=== PATIENT | male | born 1980 | race Caucasian/White ===

== ENCOUNTER → 2020-07-01 10:17 | Outpatient (BNVA) | payer SELFPAY | PROVIDERS: PCP Nurse Practitioner Family; Referring Provider Nurse Practitioner Family; Visit Provider Podiatrist Foot & Ankle Surgery | DX: M79.672 Pain in left foot (principal) | CPT/HCPCS: 73630 ==

== ENCOUNTER 2020-11-11 14:47 | Outpatient (CLI) | payer SELFPAY ==
--- NOTE | 2020-11-11 14:52 | XR_ITS ---
WS: [id number] Chest 2 views, 11/11/2020 Clinical Data: CHRONIC COUGH Comparison: None. Findings: No nodules, masses or effusions are seen. The heart is normal. The pulmonary vascularity is not increased. No pneumonia or pneumothorax is seen. XR/XR chest 2V* [id number] Impression: Negative chest.
== END 2020-11-11 14:48 | disposition home or self-care (01) ==
PROVIDERS: PCP Nurse Practitioner Family; Visit Provider Nurse Practitioner Family
DX: R05 Cough (principal)
CPT/HCPCS: 71046

== ENCOUNTER → 2020-12-03 11:35 | Outpatient (BNVA) | payer SELFPAY | PROVIDERS: PCP Nurse Practitioner Family; Visit Provider Nurse Practitioner | DX: J02.9 Acute pharyngitis, unspecified (principal); J06.9 Acute upper respiratory infection, unspecified | CPT/HCPCS: 87880 ==

== ENCOUNTER 2022-06-19 12:22 | Emergency (ER) | payer SELFPAY ==
[2022-06-19 12:25] VITALS: BP 143/98; PULSE 75; RESP 16; TEMP 36.7; O2SAT 97
--- NOTE | 2022-06-19 12:58 | XRR_ITS ---
PROCEDURE INFORMATION: Exam: XR Chest Exam date and time: 06/19/2022 1:13 PM Age: 42 years old Clinical indication: Other: Epigastric pain TECHNIQUE: Imaging protocol: Radiologic exam of the chest. Views: 1 view. COMPARISON: CR XR chest 2V* [id number] 11/11/2020 3:20 PM FINDINGS: Lungs: Unremarkable. No consolidation. Pleural spaces: Unremarkable. No pleural effusion. No pneumothorax. Heart/Mediastinum: Unremarkable. No cardiomegaly. Bones/joints: Unremarkable. XR/XR chest 1V portable [id number] IMPRESSION: No acute findings.
--- NOTE | 2022-06-19 12:58 | ECG_ITS ---
[facility] Test Date: 2022-06-19 Pat Name: Kwadwo Dowell Department: Room: Gender: Male Service Agent: : 1980 Requested By: Srinivasa Bull Order Number: [id number] Bustillos MD: Arya Aaron M.D. Measurements Intervals [place] Rate: 67 P: 40 [place]: 187 QRS: -10 QRSD: 105 T: 29 QT: 365 QTc: 388 Interpretive Statements SINUS RHYTHM No previous ECG available for comparison Electronically Signed On 06-19-2022 15:15:48 MECHANICAL TECHNICAL SERVICE SPECIALIST by Arya Aaron M.D. [id number]
--- NOTE | 2022-06-19 13:29 | CT_ITS ---
WS: [id number] CT ABDOMEN PELVIS TECHNIQUE: Contrast-enhanced CT of the abdomen and pelvis with coronal and sagittal reformatted image s. CLINICAL INFORMATION: epigastric pain with diarrhea COMPARISON: None. DLP: 842.[address] scans at [facility] use at least one of these dose optimization techniques: automated e xposure control; mA and/or kV adjustment per patient size (includes targeted exams where dose is matc hed to clinical indication); or iterative reconstruction. FINDINGS: Tiny amount of thickening and induration involving the RIGHT hepatic flexure. Associated di verticuli. Findings suggestive of early or mild hepatic flexure diverticulitis or less likely colitis . Colon is otherwise normal in appearance. Normal appendix in the lower quadrant. Diffuse fatty infiltration liver. Normal portal vein and splenic vein. Normal gallbladder. Normal spl een. Normal GE junction. Normal pancreatic parenchymal enhancement. Adrenal glands are normal. No hyd ronephrosis in either kidney. Normal renal parenchymal enhancement. No obstructing renal or ureteral calculi. Lung bases are well aerated. Normal caliber abdominal aorta. Celiac and SMA are patent. Normal sigmoi d colon. A few sigmoid diverticuli. No evidence of high-grade small or large bowel obstruction. Suyapa l appendix in the RIGHT lower quadrant. No evidence of acute appendicitis. No free fluid in the abdom en or pelvis. Small fat-containing LEFT inguinal hernia. Gallbladder is contracted. Normal portal vei n and splenic vein. CT/CT abdomen pelvis w con* [id number] IMPRESSION: 1. Tiny amount of thickening and induration involving the hepatic flexure sugg estive of hepatic flexure diverticulitis or colitis. Associated diverticuli in this area. 2. Colon is otherwise normal in appearance. 3. Hepatomegaly diffuse fatty infiltration of the liver. 4. Normal appendix in the RIGHT lower quadrant. No evidence of acute appendici tis. 5. Normal renal parenchymal enhancement. No hydronephrosis. 6. Normal sigmoid colon. 7. No free fluid in the abdomen or pelvis.
--- NOTE | 2022-06-19 13:31 | W.ED.ABDPA2 ---
HPI - Abdominal Pain General: Chief Complaint: Abdominal Pain Stated Complaint: Sharp pain in lower chest Time Seen by Provider: 06/19/22 12:58 History of Present Illness: Patient is a 42-year-old male comes to the ED with abdominal pain. Symptoms started little over 2 weeks ago. He has a past history of H. pylori. Pain is a sharp burning pain is located in the epigastric region of the abdomen. Some foods and soda make it worse. He rates the pain currently a 10 out of 10. He also endorses having multiple episodes of diarrhea approximately 7-8 times a day. He had 1 episode 2 weeks ago of a black stool but has not had any other episodes of black stool. Denies any fever, nausea or vomiting. He saw his PCP several days ago and they started him on triple treatment (2 antibiotics and a PPI) for stomach ulcer. He is in the process of getting set up for an upper GI scope. Denies any shortness of breath or chest pain. Associated Symptoms: Reports change in stool character (1 episode of black stool) and diarrhea; Denies chills, constipation, dysuria, fever(s), hematochezia, hematuria, nausea and vomiting Review of Systems Const: Denies: fever(s), chills or fatigue Eyes: Denies: change in vision or eye discomfort ENMT: Denies: throat pain, odynophagia, nasal discharge or nasal congestion Card: Denies: chest pain, palpitations, edema, swelling of feet/ankles, dyspnea on exertion or orthopnea Resp: Denies: dyspnea, productive cough or non-productive cough GI: Reports: abdominal pain, diarrhea and change in stool character (1 episode of black stool); Denies: nausea, vomiting, constipation or hematochezia : Denies: flank pain, difficulty urinating, dysuria or hematuria Musc: Denies: neck pain, back pain or extremity swelling Skin/Breast: Denies: rash or new lesions Neuro: Denies: headache(s), numbness in extremities or weakness in extremities [facility] ED PFSH: Medical History Hypertension Surgical History History of cranial surgery Social History Smoking and tobacco status: current every day smoker (chew) smokeless tobacco Smokeless tobacco user: chewing tobacco Alcohol intake: current Alcohol intake frequency: 3 or more drinks per day Lives independently: Yes Household members: spouse and children Physical Exam Const: COMMON NORMALS: no acute distress, patient oriented x3 and alert HENMT: COMMON NORMALS: normocephalic HEAD & SCALP: normocephalic MOUTH: Normal oral and palatal mucosa present THROAT: posterior oropharynx normal and uvula midline Neck/C-Spine: COMMON NORMALS: supple GENERAL: Yes normal visual inspection Resp: COMMON NORMALS: normal respiratory effort, No retractions, No use of accessory muscles and clear to auscultation bilaterally AUSCULTATION: clear to auscultation bilaterally Cardio: COMMON NORMALS: regular rate, regular rhythm, S1 normal heart sound present, S2 normal heart sound present, No gallops present (Cardio), No clicks present (Cardio), No murmurs present (Cardio) and Peripheral pulses 2+ throughout RATE: regular rate RHYTHM: regular rhythm HEART SOUNDS: S1 normal heart sound present and S2 normal heart sound present PERIPHERAL PULSES: Peripheral pulses 2+ throughout GI: COMMON NORMALS: Normal to inspection, nondistended, normoactive bowel sounds present, Soft to palpation and no masses PALPATION: Yes Soft to palpation and Yes Tenderness to palpation present (GI) (Epigastric tenderness) : COMMON NORMALS: Yes no CVA tenderness BLADDER/KIDNEY EXAM: Yes no CVA tenderness Back/Pelvis: COMMON NORMALS: no CVA tenderness Extremity: COMMON NORMALS: normal to inspection Neuro: COMMON NORMALS: patient oriented x3 SENSORIUM/ORIENTATION: Yes alert GAIT: Yes Normal gait present Skin: GENERAL SKIN EXAM: dry skin Course Vital Signs: Vital signs: Vital Signs Temperature 98.1 F 06/19/22 12:25 Pulse Rate 65 06/19/22 16:31 Respiratory Rate 16 06/19/22 16:31 Blood Pressure 130/110 06/19/22 16:31 Pulse Oximetry 98 06/19/22 16:31 Oxygen Delivery Me thod 06/19/22 12:25 MDM - Abdominal Pain Medical Decision Making Patient is a 42-year-old male comes to the ED with abdominal pain. Symptoms started little over 2 weeks ago. He has a past history of H. pylori. Pain is a sharp burning pain is located in the epigastric region of the abdomen. Some foods and soda make it worse. He rates the pain currently a 10 out of 10. He also endorses having multiple episodes of diarrhea approximately 7-8 times a day. He had 1 episode 2 weeks ago of a black stool but has not had any other episodes of black stool. Denies any fever, nausea or vomiting. He saw his PCP several days ago and they started him on triple treatment for stomach ulcer. Vitals are stable. Patient has epigastric tenderness to the abdomen and rest of exam is benign. Troponin negative. H. pylori is positive. CBC and CMP unremarkable. EKG shows normal sinus rhythm with no ST segment elevation or depression seen. Chest x-ray shows no acute findings. CT of abdomen pelvis shows signs of colitis but no other acute findings. Patient was diagnosed with H. pylori and was discharged home with a prescription for Zofran, bismuth subsalicylate and hydrocodone for acute pain. He was told to continue taking his previously prescribed triple treatment (2 antibiotics and PPI )for ulcer as well. Follow-up with PCP within the next week for reevaluation. Return ED precautions given. Patient understood and agreed with plan. Lab Data I reviewed the patient's lab results. 06/19/22 13:20 06/19/22 13:20 Labs/Radiology: Radiology Impressions Chest X-Ray 06/19/22 12:58 IMPRESSION: No acute findings. Abdomen/Pelvis CT 06/19/22 13:29 IMPRESSION: 1. Tiny amount of thickening and induration involving the hepatic flexure suggestive of hepatic flexure diverticulitis or colitis. Associated diverticuli in this area. 2. Colon is otherwise normal in appearance. 3. Hepatomegaly diffuse fatty infiltration of the liver. 4. Normal appendix in the RIGHT lower quadrant. No evidence of acute appendicitis. 5. Normal renal parenchymal enhancement. No hydronephrosis. 6. Normal sigmoid colon. 7. No free fluid in the abdomen or pelvis. Laboratory Results WBC 8.3 10^3/uL (4.0-10.0) 06/19/22 13:20 RBC 4.77 10^6/uL (4.1-5.3) 06/19/22 13:20 Hgb 15.4 g/dL (11.7-16.6) 06/19/22 13:20 Hct 44.2 % (42.0-52.0) 06/19/22 13:20 MCV 92.7 fl (80-94) 06/19/22 13:20 MCH 32.3 pg (28.0-34.0) 06/19/22 13:20 MCHC 34.8 g/dL (30.0-36.0) 06/19/22 13:20 RDW 12.0 % (12.1-15.1) L 06/19/22 13:20 Plt Count 232 10^3/cmm (130-400) 06/19/22 13:20 MPV 8.7 fL (7.4-10.4) 06/19/22 13:20 Neut % (Auto) 75.9 % 06/19/22 13:20 Lymph % (Auto) 15.5 % 06/19/22 13:20 Coleman % (Auto) 7.3 % 06/19/22 13:20 Eos % (Auto) 0.6 % 06/19/22 13:20 Baso % (Auto) 0.5 % 06/19/22 13:20 Neut # (Auto) 6.33 10^3/uL (1.8-7.7) 06/19/22 13:20 Lymph # (Auto) 1.3 10^3/uL (0.8-4.8) 06/19/22 13:20 Coleman # (Auto) 0.6 10^3/uL (0.2-0.9) 06/19/22 13:20 Eos # (Auto) 0.1 10^3/uL (0.0-0.8) 06/19/22 13:20 Baso # (Auto) 0.0 10^3/uL (0.0-0.1) 06/19/22 13:20 Nucleated RBC % (auto) 0 % 06/19/22 13:20 Nucleated RBCs # 0.0 /100WBC 06/19/22 13:20 Sodium 131 mmol/L (136-145) L 06/19/22 13:20 Potassium 4.2 mmol/L (3.5-5.1) 06/19/22 13:20 Chloride 98 mmol/L (98-107) 06/19/22 13:20 Carbon Dioxide 25 mmol/L (22-29) 06/19/22 13:20 Anion Gap 12.2 (5-19) 06/19/22 13:20 BUN 13 mg/dL (6-20) 06/19/22 13:20 Creatinine 0.9 mg/dL (0.7-1.2) 06/19/22 13:20 GFR Calculation 92.5 mL/min (90-130) 06/19/22 13:20 Glucose 92 mg/dL (65-115) 06/19/22 13:20 Calculated Osmolality 272 mOsm/kg (285-295) L 06/19/22 13:20 Calcium 9.0 mg/dL (8.5-10.5) 06/19/22 13:20 Total Bilirubin 0.7 mg/dL (0.15-1.2) 06/19/22 13:20 AST 45 U/L (0-40) H 06/19/22 13:20 ALT 38 U/L (0-41) 06/19/22 13:20 Alkaline Phosphatase 86 U/L (40-130) 06/19/22 13:20 Troponin T Baseline 6 ng/L (0-15) 06/19/22 13:20 Troponin T 120 Minute 6.00 ng/L (0-15) 06/19/22 14:50 Delta Troponin T 0 ABS# (0-10) 06/19/22 14:50 Total Protein 7.1 g/dL (6.6-8.7) 06/19/22 13:20 Albumin 4.0 g/dL (3.5-5.2) 06/19/22 13:20 Globulin 3.1 g/dL (1.3-4.6) 06/19/22 13:20 Lipase 109 U/L (13-60) H 06/19/22 13:20 H. pylori IgG Antibody Positive (Negative) H 06/19/22 13:20 EKG Data EKG 1: EKG interpretation date: 06/19/22 Computer generated interpretation: Mister Bell [address] [address] Electrocardiograph Report Signed Patient: Kwadwo Dowell Unit #: [id number] : 1980 Age/Sex: 42 / M ADM Date: 06/19/22 Loc: ER Room/Bed: Attending Dr: Ordering Provider/Ordering MD: Srinivasa Bull Date of Service: 06/19/22 Procedure(s): ECG 12 lead EKG Accession Number(s): [id number] Report Number: [id number] ? [facility] ? Test Date:? ? 2022-06-19 Pat Name: ? ? Kwadwo Dowell ? Department: ? Patient ID: ? [id number] ? Room: ? Gender: ? ? ? Male ? Rn Radiation Oncology: ? :? 1980 ? Requested By: Srinivasa Bull Order Number: [id number]? Reading MD: ? Arya Aaron M.D. ? Measurements Intervals? [place]? Rate: ? 61 ? P:? 53 NE: ? 181? QRS:? -10 QRSD: ? 101? T:? 29 QT: ? 376? QTc:? 380? Interpretive Statements SINUS RHYTHM Compared to ECG 06/19/2022 13:04:35 No significant changes Electronically Signed On 06-19-2022 15:17:09 MANAGER LSW by Arya Aaron M.D. [id number] Dictated By: Arya Aaron MD Signed By: Arya Aaron MD Signed Date/Time: 06/19/22 1518 DD/ 1503 Discharge Plan Discharge Patient Disposition: Home Clinical Impression: Helicobacter pylori gastritis Condition: Stable Prescriptions: New bismuth subsalicylate 262 mg tablet 2 tab PO QID 10 Days Qty: 80 0RF ondansetron 4 mg tablet,disintegrating 4 mg PO Q8H PRN (Reason: nausea and vomiting) Qty: 20 0RF No Action losartan 50 mg tablet 50 mg PO DAILY amoxicillin 500 mg capsule 1,000 mg PO BID clarithromycin 500 mg tablet 500 mg PO BID metronidazole 500 mg tablet 500 mg PO BID pantoprazole 40 mg tablet,delayed release (DR/EC) 40 mg PO DAILY Tylenol Extra Strength 500 mg Capsule 1,000 mg PO Q6H PRN (Reason: Pain) Discharge Orders: Discharge ED (Routine); Ordered 06/19/22 Ordered By: Srinivasa Bull Referrals: Rachael Vasques FNP [Primary Care Provider] - Discharge Diet: Advance as tolerated and Clear Liquid Discharge Activity: Resume usual activity Activity Restrictions/Additional Instructions: Follow-up with medical provider as directed in the next 3 to 5 days for reevaluation. Continue taking all previously prescribed medications to treat ulcer. Take new medications as prescribed. Return to the ER or your medical provider if condition worsens. Please read and understand discharge instructions. Thank you for choosing [facility] for your healthcare needs today. Please realize this is an emergency room and that we are providing you with a medical screening exam and this may not be complete and all inclusive of all the testing and or work up that you may need to determine your ailment or severity of your illness. It is very important that you follow up as instructed or that you return to the Emergency Department should you have concerns or if your condition changes or worsens in any way. Coding Level of Care Code ED Chief Controller [facility] Exam Comprehensive
[2022-06-19 13:35] LABS: Basophils % 0.5 %; Eosinophils # 0.1 10^3/uL (0.0-0.8); Eosinophils % 0.6 %; Hematocrit 44.2 % (42.0-52.0); Hemoglobin 15.4 g/dL (11.7-16.6); Lymphocytes # 1.3 10^3/uL (0.8-4.8); Lymphocytes % 15.5 %; Mean Corpuscular HGB Conc 34.8 g/dL (30.0-36.0); Mean Corpuscular Hemoglobin 32.3 pg (28.0-34.0); Mean Corpuscular Volume 92.7 fl (80-94); Mean Platelet Volume 8.7 fL (7.4-10.4); Monocytes # 0.6 10^3/uL (0.2-0.9); Monocytes % 7.3 %; Neutrophils # 6.33 10^3/uL (1.8-7.7); Neutrophils % 75.9 %; Nucleated Red Blood Cells % 0 %; Platelet Count 232 10^3/cmm (130-400); Red Blood Count 4.77 10^6/uL (4.1-5.3); White Blood Count 8.3 10^3/uL (4.0-10.0)
[2022-06-19 13:44] VITALS: RESP 16
[2022-06-19] MEDS: sodium chloride 0.9% 1,000 ML 999 ML IV (13:44)
[2022-06-19] MEDS: morphine 4 mg/mL SDV 1 mL IVP (13:44)
[2022-06-19] MEDS: ondansetron 2 mg/ML SDV 2 mL 4 MG IVP (13:45)
[2022-06-19 14:01] LABS: Troponin(5th) Baseline 6 ng/L (0-15)
[2022-06-19 14:03] LABS: Alanine Aminotransferase 38 U/L (0-41); Alkaline Phosphatase 86 U/L (40-130); Anion Gap 12.2 (5-19); Aspartate Amino Transferase 45 U/L (0-40); Blood Urea Nitrogen 13 mg/dL (6-20); Carbon Dioxide 25 mmol/L (22-29); Chloride 98 mmol/L (98-107); Globulin 3.1 g/dL (1.3-4.6); Glomerular Filtration Rate 92.5 mL/min (90-130); Glucose 92 mg/dL (65-115); Lipase 109 U/L (13-60); Osmolality Calculated 272 mOsm/kg (285-295); Potassium 4.2 mmol/L (3.5-5.1); Sodium 131 mmol/L (136-145); Total Bilirubin 0.7 mg/dL (0.15-1.2); Total Protein 7.1 g/dL (6.6-8.7)
[2022-06-19 14:05] LABS: H. Pylori IgG Antibody Positive (Negative)
[2022-06-19] MEDS: iohexol 350 mg/mL 500 mL Btl (per mL) IV (14:12)
--- NOTE | 2022-06-19 14:58 | ECG_ITS ---
[facility] Test Date: 2022-06-19 Pat Name: Kwadwo Dowell Department: Room: Gender: Male Armhole Presser: : 1980 Requested By: Srinivasa Bull Order Number: [id number] Bustillos MD: Arya Aaron M.D. Measurements Intervals [place] Rate: 61 P: 53 ID: [id number] QRS: -10 QRSD: 101 T: 29 QT: 376 QTc: 380 Interpretive Statements SINUS RHYTHM Compared to ECG 06/19/2022 13:04:35 No significant changes Electronically Signed On 06-19-2022 15:17:09 EQUITY RESEARCH ANALYST by Arya Aaron M.D. [id number]
[2022-06-19 15:21] LABS: Troponin 5 2HR Delta 0 ABS# (0-10)
[2022-06-19] MEDS: lidocaine 2% viscous 15 ML, aluminum-mag hydrox-simethicon 30 ML, sucralfate oral liq 1 GM PO (15:58)
[2022-06-19 15:59] VITALS: RESP 17; O2SAT 93
[2022-06-19] MEDS: HYDROmorphone 1 mg/mL INJ 1 mL IVP (15:59)
[2022-06-19 16:31] VITALS: BP 130/110; PULSE 65; RESP 16; O2SAT 98
== END 2022-06-19 16:32 | disposition home or self-care (01) ==
PROVIDERS: Emergency Provider Physician Assistant; PCP Nurse Practitioner Family
DX: A04.8 Other specified bacterial intestinal infections (principal); I10 Essential (primary) hypertension; F17.220 Nicotine dependence, chewing tobacco, uncomplicated
CPT/HCPCS: 36415; 71045; 74177; 80053; 83690; 84484; 85025; 86677; 93005; 96361; 96374; 96375; 99285; J1170; J2270; J2405; J7030; Q9967

== ENCOUNTER 2022-07-11 11:38 | Outpatient (CLI) | payer SELFPAY | END 2022-07-11 11:39 | disposition home or self-care (01) | LOC: LAB 11:55 | PROVIDERS: PCP Nurse Practitioner Family; Visit Provider Nurse Practitioner Family | DX: R19.7 Diarrhea, unspecified (principal) | CPT/HCPCS: 83630; 87493; 87506 ==

== ENCOUNTER 2022-09-08 07:52 | Day surgery (SDC) | payer BC, MEDICAID, SELFPAY ==
[2022-09-06 10:24] VITALS: BMI 26.9
[2022-09-08 08:24] VITALS: BP 128/93; PULSE 61; RESP 18; TEMP 36.4; O2SAT 97
[2022-09-08] MEDS: sodium chloride 0.9% 1,000 ML 30 ML IV (08:30)
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
--- NOTE | 2022-09-08 10:17 | PM.HP ---
Providers/Chief Complaint Primary Care Provider: Rachael Vasques Chief Complaint: K21.9, K92.1 History of Present Illness Kwadwo Dowell Sr is a 42 year old male here for EGD and colonoscopy Medications/Allergies Home Medications Medication Instructions Recorded Confirmed Last Taken Type losartan 50 mg tablet 50 mg PO DAILY 06/19/22 09/06/22 09/07/22 History Allergies Allergy/AdvReac Type Severity Reaction Status Date / Time No Known Allergies Allergy Verified 07/18/22 13:14 PFSH Acute PFSH: Medical History Hypertension Surgical History History of cranial surgery Social History Smoking and tobacco status: current every day smoker (chew) smokeless tobacco Smokeless tobacco user: chewing tobacco Alcohol intake: current Alcohol intake frequency: 3 or more drinks per day Substance/Drug Use: never Lives independently: Yes Household members: spouse and children Vitals/I&O/Wt Last Vital Signs Temp 97.6 F 09/08/22 08:24 Pulse 61 09/08/22 08:24 Resp 18 09/08/22 08:24 BP 128/93 09/08/22 08:24 Pulse Ox 97 09/08/22 08:24 O2 Del Method Room Air 09/08/22 08:24 Weight last 48 hrs Weight 210 lb A&P Assessment and plan (1) Hematochezia: (2) GERD (gastroesophageal reflux disease): Plan EGD and colonoscopy Attestations Medical Necessity Statement*: Home Coding Level of Care Code Acute Code for Chg Fwd Diagnoses Hematochezia K92.1 GERD (gastroesophageal reflux disease) K21.9
[2022-09-08 10:47] VITALS: BP 107/75; PULSE 56; RESP 16; TEMP 36.1; O2SAT 96
[2022-09-08 11:13] VITALS: BP 128/95; PULSE 54; RESP 18; O2SAT 96
--- NOTE | 2022-09-08 13:05 | ANE.PACU2 ---
Inpatient post-anesthesia follow up: Airway intact: Yes Vital signs: Temperature 97.0 F Pulse Rate 54 Respiratory Rate 18 Blood Pressure 128/95 Pulse Oximetry 96 Oxygen Delivery Me thod Room Air Oxygen Flow Rate Fraction of Inspir ed Oxygen Hydration adequate: Yes Nausea and vomiting: No Pain level: 1 Mental status: Baseline
== END 2022-09-08 11:39 | disposition home or self-care (01) ==
PROVIDERS: PCP Nurse Practitioner Family; Visit Provider Surgery
PROC: 0DJD8ZZ Inspection of Lower Intestinal Tract, Via Natural or Artificial Opening Endoscopic (ICD-10-PCS; CPT 45378; 2022-09-08 10:00)
DX: I10 Essential (primary) hypertension (principal); F17.290 Nicotine dependence, other tobacco product, uncomplicated; K92.1 Melena; K21.9 Gastro-esophageal reflux disease without esophagitis; K29.50 Unspecified chronic gastritis without bleeding; D12.2 Benign neoplasm of ascending colon; K57.30 Diverticulosis of large intestine without perforation or abscess without bleeding
CPT/HCPCS: 43239; 45385; 88305; 88342; J2704; J7030

== ENCOUNTER 2022-12-05 12:13 | Emergency (ER) | payer OTHER, MEDICAID, SELFPAY ==
--- NOTE | 2022-12-05 12:18 | US_ITS ---
WS: [id number] Exam: US gall bladder [id number] Date/Time of Exam: 12/05/2022 12:26 PM Reason For Exam: pain, n/v/d The gallbladder and liver appear normal. The common bile duct is not dilated and measures 2.4 mm at g reatest diameter. Normal-appearing right kidney measures 10.26 x 5.17 x 4.85 cm. No mass or free flui d the right abdomen. US/US gall bladder [id number] IMPRESSION: 1. Normal gallbladder ultrasound.
[2022-12-05 13:00] VITALS: BP 122/89; PULSE 84; RESP 16; TEMP 36.8; O2SAT 98; BMI 28.2
--- NOTE | 2022-12-05 13:24 | ED_ITS ---
HPI - Abdominal Pain General: Chief Complaint: Abdominal Pain Stated Complaint: ABD PAIN Time Seen by Provider: 12/05/22 12:16 Source: patient and family Mode of arrival: ambulatory Limitations: no limitations History of Present Illness: Patient is a very pleasant 42-year-old male here for complaints of abdominal pain and diarrhea. He has a history of treated H. pylori infection (twice-both with triple therapy) with resulting C. difficile infection that was treated as well (oral vancomycin).? He underwent EGD and colonoscopy 5 months ago and was found to have chronic active gastritis-taking pantoprazole BID.?He reports that he drinks about 5 or 6 beers a day.? He was just in the [place] with his and was admitted to the hospital for pancreatitis-discharged about 3 days ago and he states pain has not improved.?Reports lipase at time of discharge was 130s. has CT report with her showing pancreatits and a mildly distended gallbladder. An ultrasound of his gallbladder was not done at that time.? He reports that he is having about 10 watery bowel movements a day and has so for the last 2 months or so.? He still has severe constant mid and epigastric abdominal pain.? Nothing really seems to make the pain better or worse although he does state he drank some Sprite a few days ago and that made it significantly worse.?Denies any hematochezia and/or melena. He was seen by Dr. Baron earlier today and sent to the ED. MD elicited complaint: abdominal pain Pertinent past history: gastritis and other (pancreatitis) Onset (ago): day(s) Pain Consistency: constant Location: Diffuse Severity: severe Quality: cramping and sharp Radiation: none Migration to: no migration Relieving factors: nothing Associated Symptoms: Reports GI cramping, diarrhea and nausea; Denies chills, dysuria, fever(s), hematochezia, hematuria, hematemesis, melena and vomiting Review of Systems Const: Denies: fever(s), chills, body aches, fatigue or malaise Card: Denies: chest pain Resp: Denies: dyspnea GI: Reports: abdominal pain, nausea, diarrhea and GI cramping; Denies: vomiting, hematemesis, rectal pain, rectal swelling, hematochezia or melena : Denies: flank pain, difficulty urinating, dysuria, urinary urgency or hematuria Musc: Denies: neck pain, back pain, extremity pain or joint pain Skin/Breast: Denies: rash Neuro: Denies: headache(s), numbness in extremities, weakness in extremities, sensory changes or dizziness PFSH ED PFSH: Medical History C. difficile colitis Hypertension Pancreatitis Surgical History History of cranial surgery History of esophagogastroduodenoscopy (EGD) Hx of colonoscopy Social History Smoking and tobacco status: current every day smoker (chew) smokeless tobacco Smokeless tobacco user: chewing tobacco Alcohol intake: current Alcohol intake frequency: 3 or more drinks per day Substance/Drug Use: never Lives independently: Yes Household members: spouse and children Physical Exam Const: COMMON NORMALS: average body habitus, patient oriented x3, no limitations, healthy appearing, alert and well nourished GENERAL APPEARANCE: cooperative and in distress (appears uncomfortable ) ORIENTATION/CONSCIOUSNES S: Yes awake, Yes oriented to person, Yes oriented to place and Yes oriented to time Eye: COMMON NORMALS: no scleral icterus Resp: COMMON NORMALS: normal respiratory effort and clear to auscultation bilaterally AUSCULTATION: clear to auscultation bilaterally Cardio: COMMON NORMALS: regular rate and regular rhythm RATE: regular rate RHYTHM: regular rhythm GI: COMMON NORMALS: Normal to inspection, nondistended, normoactive bowel sounds present, Soft to palpation, No hepatosplenomegaly present, no masses and no bruits INSPECTION: Yes normal to inspection AUSCULTATION: Yes normoactive bowel sounds PALPATION: Yes Soft to palpation, Yes Tenderness to palpation present (GI) (diffusely tender but more so across upper abdomen), No Guarding due to palpation present (GI), No Rigid due to palpation and Yes No h epatosplenomegaly present : COMMON NORMALS: Yes no CVA tenderness BLADDER/KIDNEY EXAM: Yes no CVA tenderness Back/Pelvis: COMMON NORMALS: no CVA tenderness Extremity: COMMON NORMALS: normal to inspection GENERAL: Yes normal exam except as noted Neuro: ARRON COMA SCALE: document GCS findings [place] coma scale eye opening: Spontaneous [place] coma scale verbal response: Orientated [place] coma scale motor response: Obey commands [place] coma scale total score: 15 COMMON NORMALS: patient oriented x3 SENSORIUM/ORIENTATION: Yes alert, Yes oriented to person, Yes oriented to place and Yes oriented to time Skin: COMMON NORMALS: no rashes or lesions noted GENERAL SKIN EXAM: no rashes or lesions noted Course Vital Signs: Vital signs: Vital Signs Temperature 98.3 F 12/05/22 13:00 Pulse Rate 79 12/05/22 14:27 Respiratory Rate 16 12/05/22 14:27 Blood Pressure 123/85 12/05/22 14:27 Pulse Oximetry 94 12/05/22 14:27 Oxygen Delivery Me thod Room Air 12/05/22 14:27 MDM - Abdominal Pain Medical Decision Making Patient here with complaints of diffuse abdominal pains as well as diarrhea over the past 8 weeks or so. Patient has known chronic gastritis diagnosed on his EGD a few months ago. He is on a PPI BID. Feels like GI cocktail helped here so at least part of patient's discomfort could be related to gastritis. He most likely has some type of enteritis/colitis picture given his diarrhea that could also be contributing. Patient has been here in our ER over 3 hours and has failed to supply us with a stool sample. I will write him for outpatient orders for this and have results faxed to Dr. Baron. Ultrasound of his gallbladder is normal. CT scan showing uncomplicated pancreatitis. His lipase today is 130 which is what it was upon discharge in [place] several days ago. Patient's pain and nausea were easily controlled in the emergency department. I feel patient could safely be discharged home with pain and nausea meds as well as directions for a clear liquid diet and slowly advancing as tolerated. Strict return to ED precautions given. Lab Data 12/05/22 13:10 12/05/22 13:10 Labs/Radiology: Radiology Impressions Gallbladder Ultrasound 12/05/22 12:18 IMPRESSION: 1. Normal gallbladder ultrasound. Abdomen/Pelvis CT 12/05/22 14:02 IMPRESSION: 1. Findings of acute interstitial edematous pancreatitis without evidence of complication. 2. Small pleural effusions. 3. Urinary bladder wall thickening may be on the basis of underdistention. Correlate for evidence of cystitis. Laboratory Results WBC 8.2 10^3/uL (4.0-10.0) 12/05/22 13:10 RBC 4.07 10^6/uL (4.1-5.3) L 12/05/22 13:10 Hgb 12.9 g/dL (11.7-16.6) 12/05/22 13:10 Hct 38.9 % (42.0-52.0) L 12/05/22 13:10 MCV 95.6 fl (80-94) H 12/05/22 13:10 MCH 31.7 pg (28.0-34.0) 12/05/22 13:10 MCHC 33.2 g/dL (30.0-36.0) 12/05/22 13:10 RDW 11.9 % (12.1-15.1) L 12/05/22 13:10 Plt Count 221 10^3/cmm (130-400) 12/05/22 13:10 MPV 9.5 fL (7.4-10.4) 12/05/22 13:10 Neut % (Auto) 74.7 % 12/05/22 13:10 Lymph % (Auto) 15.5 % 12/05/22 13:10 [place] % (Auto) 6.8 % 12/05/22 13:10 Eos % (Auto) 2.4 % 12/05/22 13:10 Baso % (Auto) 0.2 % 12/05/22 13:10 Neut # (Auto) 6.14 10^3/uL (1.8-7.7) 12/05/22 13:10 Lymph # (Auto) 1.3 10^3/uL (0.8-4.8) 12/05/22 13:10 [place] # (Auto) 0.6 10^3/uL (0.2-0.9) 12/05/22 13:10 Eos # (Auto) 0.2 10^3/uL (0.0-0.8) 12/05/22 13:10 Baso # (Auto) 0.0 10^3/uL (0.0-0.1) 12/05/22 13:10 Nucleated RBC % (auto) 0 % 12/05/22 13:10 Nucleated RBCs # 0.0 /100WBC 12/05/22 13:10 Sodium 139 mmol/L (136-145) 12/05/22 13:10 Potassium 3.3 mmol/L (3.5-5.1) L 12/05/22 13:10 Chloride 104 mmol/L (98-107) 12/05/22 13:10 Carbon Dioxide 23 mmol/L (22-29) 12/05/22 13:10 Anion Gap 15.3 (5-19) 12/05/22 13:10 BUN 4 mg/dL (6-20) L 12/05/22 13:10 Creatinine 0.8 mg/dL (0.7-1.2) 12/05/22 13:10 GFR Calculation 106.0 mL/min (90-130) 12/05/22 13:10 Glucose 160 mg/dL (65-115) H 12/05/22 13:10 Calculated Osmolality 288 mOsm/kg (285-295) 12/05/22 13:10 Calcium 9.0 mg/dL (8.5-10.5) 12/05/22 13:10 Total Bilirubin 0.4 mg/dL (0.15-1.2) 12/05/22 13:10 AST 22 U/L (0-40) 12/05/22 13:10 ALT 22 U/L (0-41) 12/05/22 13:10 Alkaline Phosphatase 80 U/L (40-130) 12/05/22 13:10 Total Protein 6.7 g/dL (6.6-8.7) 12/05/22 13:10 Albumin 3.3 g/dL (3.5-5.2) L 12/05/22 13:10 Globulin 3.4 g/dL (1.3-4.6) 12/05/22 13:10 Lipase 131 U/L (13-60) H 12/05/22 13:10 Urine Color Yellow (Yellow) 12/05/22 13:42 Urine Appearance Clear (CLEAR) 12/05/22 13:42 Urine pH 7 (5-7) 12/05/22 13:42 Ur Specific [place] 1.015 (1.005-1.030) 12/05/22 13:42 Urine Protein Neg (Negative) 12/05/22 13:42 Urine Glucose (UA) Norm (Normal) 12/05/22 13:42 Urine Ketones Negative (Negative) 12/05/22 13:42 Urine Blood Neg (Negative) 12/05/22 13:42 Urine Nitrate Negative (Negative) 12/05/22 13:42 Urine Bilirubin Neg (Negative) 12/05/22 13:42 Urine Urobilinogen Norm mg/dL (Negative) 12/05/22 13:42 Ur Leukocyte Esterase Negative (Negative) 12/05/22 13:42 Discharge Plan Discharge Patient Disposition: Home Clinical Impression: Pancreatitis Qualifiers: Chronicity: acute Pancreatitis type: unspecified pancreatitis type Acute pancreatitis complication: no infection or necrosis Qualified Code(s): K85.90 - Acute pancreatitis without necrosis or infection, unspecified Diarrhea Qualifiers: Diarrhea type: unspecified type Qualified Code(s): R19.7 - Diarrhea, unspecified Condition: Stable Prescriptions: New hydrocodone-acetaminophen 5-325 mg tablet 1 tab PO .q 4-6 PRN (Reason: pain) Qty: 20 0RF ondansetron 4 mg tablet,disintegrating 4 mg PO Q8H PRN (Reason: nausea and vomiting) Qty: 14 0RF No Action pantoprazole 40 mg tablet,delayed release (DR/EC) 40 mg PO BID losartan 50 mg tablet 50 mg PO DAILY Zyrtec 10 mg Capsule 10 mg PO QPM Discharge Orders: Discharge ED (Routine); Ordered 12/05/22 Ordered By: Nicky Bernal Referrals: Rachael Vasques [employer] [Primary Care Provider] - Patient Instructions: Opioid Safety, Pain Management, Pancreatitis Activity Restrictions/Additional Instructions: As we discussed you need to do a clear liquid diet over the next 48 hours. From there you may slowly increase to soft foods over the next 24 to 48 hours and then back to a regular diet as tolerated. You may take pain medications and nausea medications as needed. You need to return to the emergency department for worsening or uncontrollable abdominal pain, repetitive episodes of vomiting, fevers, generally feeling worse or unwell, or any other concerns you may have. As we discussed I have written you outpatient orders for stool samples. We will have these results faxed back to Dr. Baron. I will also have case management try to get you set up with a follow-up appointment with his office. Coding Level of Care Code ED [employer] for Brisa Chaney
[2022-12-05 13:32] LABS: Basophils % 0.2 %; Eosinophils # 0.2 10^3/uL (0.0-0.8); Eosinophils % 2.4 %; Hematocrit 38.9 % (42.0-52.0); Hemoglobin 12.9 g/dL (11.7-16.6); Lymphocytes # 1.3 10^3/uL (0.8-4.8); Lymphocytes % 15.5 %; Mean Corpuscular HGB Conc 33.2 g/dL (30.0-36.0); Mean Corpuscular Hemoglobin 31.7 pg (28.0-34.0); Mean Corpuscular Volume 95.6 fl (80-94); Mean Platelet Volume 9.5 fL (7.4-10.4); Monocytes # 0.6 10^3/uL (0.2-0.9); Monocytes % 6.8 %; Neutrophils # 6.14 10^3/uL (1.8-7.7); Neutrophils % 74.7 %; Nucleated Red Blood Cells % 0 %; Platelet Count 221 10^3/cmm (130-400); Red Blood Count 4.07 10^6/uL (4.1-5.3); Red Cell Distribution Width 11.9 % (12.1-15.1); White Blood Count 8.2 10^3/uL (4.0-10.0)
[2022-12-05 13:33] VITALS: RESP 16
[2022-12-05] MEDS: sodium chloride 0.9% 1,000 ML 999 ML IV (13:33)
[2022-12-05] MEDS: morphine 4 mg/mL SDV 1 mL IVP (13:33)
[2022-12-05] MEDS: ondansetron 2 mg/ML SDV 2 mL 4 MG IVP (13:33)
[2022-12-05 13:36] VITALS: BP 135/103; PULSE 78; RESP 16; O2SAT 96
[2022-12-05 13:48] LABS: Alanine Aminotransferase 22 U/L (0-41); Albumin Level 3.3 g/dL (3.5-5.2); Alkaline Phosphatase 80 U/L (40-130); Anion Gap 15.3 (5-19); Aspartate Amino Transferase 22 U/L (0-40); Blood Urea Nitrogen 4 mg/dL (6-20); Carbon Dioxide 23 mmol/L (22-29); Chloride 104 mmol/L (98-107); Creatinine Clr Calc Pharmacy 151.8251; Globulin 3.4 g/dL (1.3-4.6); Glucose 160 mg/dL (65-115); Lipase 131 U/L (13-60); Osmolality Calculated 288 mOsm/kg (285-295); Potassium 3.3 mmol/L (3.5-5.1); Sodium 139 mmol/L (136-145); Total Bilirubin 0.4 mg/dL (0.15-1.2); Total Protein 6.7 g/dL (6.6-8.7)
[2022-12-05 13:53] LABS: Add Urine Microscopic? NO; Charge for UA Resulting for Rev
[2022-12-05 13:56] LABS: Bilirubin Urine Neg (Negative); Blood Urine Neg (Negative); Glucose Urine UA Norm (Normal); Ketones Urine Negative (Negative); Leukocyte Esterase Urine Negative (Negative); Nitrate Urine Negative (Negative); Protein Urine Neg (Negative); Specific Gravity, Urine 1.015 (1.005-1.030); Urine Appearance Clear (CLEAR); Urine Color Yellow (Yellow); Urobilinogen Urine Norm (Negative); pH Urine 7 (5-7)
[2022-12-05] MEDS: aluminum-mag hydrox-simethicon 30 ML, sucralfate oral liq 1 GM PO (14:00)
--- NOTE | 2022-12-05 14:02 | CTR_ITS ---
PROCEDURE INFORMATION: Exam: CT Abdomen And Pelvis With Contrast Exam date and time: 12/05/2022 2:16 PM Age: 42 years old Clinical indication: Abdominal pain; Epigastric; Additional info: Severe ab pain, diarrhea, hospitalized with pancreatitis recently-lipase down but pain TECHNIQUE: Imaging protocol: Computed tomography of the abdomen and pelvis with contrast. Radiation optimization: All CT scans at this facility use at least one of these dose optimization techniques: automated exposure control; mA and/or kV adjustment per patient size (includes targeted exams where dose is matched to clinical indication); or iterative reconstruction. Contrast material: OMNI 350; Contrast volume: 100 ml; Contrast route: INTRAVENOUS (IV); REPORTING DATA: Count of CT and Cardiac NM exams in prior 12 months: This patient has received [address] and 0 known cardiac nuclear medicine studies in the 12 months prior to the current study. COMPARISON: CT abdomen pelvis w con* [id number] 06/19/2022 1:54 PM RADIATION DOSE METRICS: Total DLP (mGy-cm): 940.92 FINDINGS: Pleural spaces: Small bilateral pleural effusions. Liver: Normal without focal lesions. Gallbladder and bile ducts: Normal. No calcified stones. No ductal dilation. Pancreas: Hazy increased peripancreatic attenuation of the body and tail with mild peripancreatic fluid tracking inferiorly to the pelvis. No ductal dilatation. Spleen: Normal. Adrenal glands: Normal. No mass. Kidneys and ureters: Normal. No hydronephrosis. Stomach and bowel: No dilatation. No mucosal thickening. Mild colonic diverticulosis. Appendix: Normal. Intraperitoneal space: No free air or well organized fluid collection. Vasculature: Unremarkable. No abdominal aortic aneurysm. Lymph nodes: No enlarged lymph nodes. Urinary bladder: Underdistended urinary bladder with circumferential wall thickening. Reproductive: Unremarkable as visualized. Bones/joints: Unremarkable. No acute fracture. Soft tissues: Unremarkable. CT/CT abdomen pelvis w con* [id number] IMPRESSION: 1. Findings of acute interstitial edematous pancreatitis without evidence of complication. 2. Small pleural effusions. 3. Urinary bladder wall thickening may be on the basis of underdistention. Correlate for evidence of cystitis.
[2022-12-05] MEDS: iohexol 350 mg/mL 500 mL Btl (per mL) IV (14:21)
[2022-12-05 14:27] VITALS: BP 123/85; PULSE 79; RESP 16; O2SAT 94
--- NOTE | 2022-12-06 09:04 | DCPLANNER ---
Addendum entered by Kristen Hsu 12/12/22 13:55: merchandise team manager received the following message from the general surgery clinic regarding follow up appointment: Called patient & he stated he had already spoke with a nurse this morning.. & he has been taken care of Original Note: merchandise team manager had message to schedule a follow up appointment for patient with general surgery. merchandise team manager sent patients information to the front office staff at general surgery. Patients information will be printed and reviewed. Clinic will call patient with appointment information.
== END 2022-12-05 15:22 | disposition home or self-care (01) ==
PROVIDERS: Emergency Provider Physician Assistant; PCP Nurse Practitioner Family
DX: K85.90 Acute pancreatitis without necrosis or infection, unspecified (principal); R19.7 Diarrhea, unspecified; I10 Essential (primary) hypertension; F17.220 Nicotine dependence, chewing tobacco, uncomplicated
CPT/HCPCS: 36415; 74177; 76705; 80053; 81003; 83690; 85025; 96374; 96375; 99285; J2270; J2405; J7030; Q9967

== ENCOUNTER 2022-12-06 11:33 | Outpatient (CLI) | payer OTHER, MEDICAID, SELFPAY | END 2022-12-06 11:34 | disposition home or self-care (01) | LOC: LAB 11:35 | PROVIDERS: PCP Nurse Practitioner Family; Visit Provider Physician Assistant | DX: R19.7 Diarrhea, unspecified (principal) | CPT/HCPCS: 82274; 83630; 87324; 87493; 87506 ==

== ENCOUNTER 2023-07-10 10:11 | Outpatient (CLI) | payer SELFPAY ==
--- NOTE | 2023-07-10 10:16 | XRR_ITS ---
PROCEDURE INFORMATION: Exam: XR Left Knee Exam date and time: 07/10/2023 10:33 AM Age: 43 years old Clinical indication: Pain; Knee; Bilateral; Additional info: Knee joint pain greater than 3 months, bilateral TECHNIQUE: Imaging protocol: Radiologic exam of the left knee. Views: 3 views. COMPARISON: CR XR foot LT min 3V* [id number] 07/01/2020 10:23 AM FINDINGS: Bones/joints: No significant pathology. Soft tissues: Normal. No joint effusion evident. XR/XR knee LT 3V* [id number] IMPRESSION: No significant pathology.
--- NOTE | 2023-07-10 10:16 | XRR_ITS ---
PROCEDURE INFORMATION: Exam: XR Right Knee Exam date and time: 07/10/2023 10:33 AM Age: 43 years old Clinical indication: Pain; Knee; Bilateral; Additional info: Knee joint pain greater than 3 months, bilateral TECHNIQUE: Imaging protocol: Radiologic exam of the right knee. Views: 3 views. COMPARISON: No relevant prior studies available. FINDINGS: Bones/joints: No significant pathology. Soft tissues: Normal. No joint effusion evident. XR/XR knee RT 3V* [id number] IMPRESSION: No significant pathology.
== END 2023-07-10 10:12 | disposition home or self-care (01) ==
LOC: RAD 10:12
PROVIDERS: PCP Nurse Practitioner Family; Visit Provider Family Medicine
DX: M25.562 Pain in left knee (principal); M25.561 Pain in right knee
CPT/HCPCS: 73562

== ENCOUNTER → 2023-12-28 09:25 | Outpatient (BNVA) | payer MEDICAID, SELFPAY | PROVIDERS: PCP Nurse Practitioner Family; Visit Provider Physician Assistant | DX: M25.561 Pain in right knee (principal); M25.562 Pain in left knee; M23.306 Other meniscus derangements, unspecified meniscus, right knee; M23.307 Other meniscus derangements, unspecified meniscus, left knee | CPT/HCPCS: 73560; 73565 ==

== ENCOUNTER 2024-01-30 13:32 | Outpatient (CLI) | payer MEDICAID, SELFPAY ==
--- NOTE | 2024-01-30 13:45 | MR_ITS ---
WS: [id number] MRI RIGHT KNEE HISTORY: knee pain COMPARISON: Radiographs 12/28/2023 Anterior cruciate ligament: Intact. Posterior cruciate ligament: Intact. Medial collateral ligament: Intact. Posterior lateral corner structures: Intact. Medial menisci: Intact. Normal signal, size and shape. Lateral meniscus: Intact. Normal signal, size and shape. Extensor mechanism: Distal quadriceps tendon and patellar tendons are intact. Fluid and soft tissue: Very small joint effusion. No Sue's cyst identified. There is a small amount of fluid along the medial head of the gastrocnemius muscle. Could potentially be a ruptured Sue's cyst. There is additional increased T2 signal consistent with edema in the central infrapatellar fat pad. There is additional fluid extending into the knee joint from the fat pad. Osseous and articular structures: Patellofemoral compartment: Normal. Medial compartment: Normal. Lateral compartment: Normal. MR/MR knee RT wo con* [id number] IMPRESSION: 1. No meniscal or ACL tear. 2. Edema in the central portion of the infrapatellar fat pad along with adjace nt fluid extending into the joint space. Suspect infrapatellar fat pad impingem ent syndrome. 3. Small amount of fluid along the medial head of the gastrocnemius muscle. No Sue's cyst identified. This could potentially represent a ruptured Sue's c yst. 4. No marrow edema.
== END 2024-01-30 13:33 | disposition home or self-care (01) ==
LOC: RAD 13:33
PROVIDERS: PCP Nurse Practitioner Family; Visit Provider Physician Assistant
DX: M25.561 Pain in right knee (principal)
CPT/HCPCS: 73721

== ENCOUNTER → 2024-08-06 08:43 | Outpatient (BNVA) | payer MEDICAID, SELFPAY | PROVIDERS: PCP Nurse Practitioner Family; Visit Provider Physician Assistant | DX: M25.561 Pain in right knee (principal); M25.562 Pain in left knee; M23.306 Other meniscus derangements, unspecified meniscus, right knee; M23.307 Other meniscus derangements, unspecified meniscus, left knee | CPT/HCPCS: 73560; 73565 ==

== ENCOUNTER 2025-04-14 11:21 | Day surgery (SDC) | payer MEDICAID, SELFPAY ==
[2025-04-14] VITALS (10 sets, daily range): BP systolic 119–147; BP diastolic 88–99; PULSE 60–70; RESP 14–20; TEMP 36.1–36.6; O2SAT 93–97; BMI 30.8
[2025-04-14] MEDS: acetaminophen 1,000 MG/100 ML PIGGYBACK 400 MG IV (12:16)
--- NOTE | 2025-04-14 13:01 | W.PM.OPSUD ---
Surgery/Procedure H&P Update DATE OF PROCEDURE: April 14, 2025 DATE H&P PERFORMED: 03/25/25 H&P UPDATE INFORMATION: I have reviewed H&P completed within last 30 days, I have examined patient prior to procedure and No changes to prior documentation PREOP DIAGNOSIS: Right knee fat pad impingement syndrome PRIMARY INDICATION FOR PROCEDURE: Right knee fat pad impingement syndrome/synovitis PLANNED PROCEDURE: Operation Date: 04/14/25 14:25 Proposed Procedures p RIGHT Knee Diagnostic and Surgical Arthroscopy w/ Fat Pad Synovectomy(Right) - Valentin Bull DO
--- NOTE | 2025-04-14 13:10 | ANES.PREANE2 ---
Pre-Anesthetic Assessment Height/Weight: Height 1.88 m Weight 108.862 kg Temp Pulse Resp BP Pulse Ox O2 Del Method 97.6 F 70 18 136/95 97 Room Air 04/14/25 11:43 04/14/25 11:43 04/14/25 11:43 04/14/25 11:43 04/14/25 11:43 04/14/25 11:45 Preop Diagnosis: Right knee fat pad impingement syndrome Operation Date: 04/14/25 14:25 Proposed Procedures p RIGHT Knee Diagnostic and Surgical Arthroscopy w/ Fat Pad Synovectomy(Right) - Valentin Bull, Familial anesthetic complications: none Was Beta Kathy taken within 24 hours: N/A Was Clonidine taken within 24 hours: N/A Last intake: Intake Last Liquid Date 04/14/25 Last Liquid Time 07:30 Last Solid Date 04/13/25 Last Solid Time 20:00 Social Alcohol and No tobacco Exam alert, oriented x 3, clear to auscultation bilaterally and regular rate & rhythm Airway Mallampati: Class IV Dentition: full CV/HEM Hypertension GI Gastroesophageal Reflux Disease Anesthetic Plan ASA status: 2 Anesthesia: General Risk of > 500 ml blood loss (7ml/kg in children): No Medications/Allergies Home Medications ?Medication ?Instructions ?Recorded ?Confirmed ?Last Taken ?Type losartan 50 mg tablet 50 mg PO QPM 06/19/22 04/13/25 04/13/25 History Economy Knee Brace, left and right #1 ea 07/20/23 03/25/25 Unknown Rx Allergies Allergy/AdvReac Type Severity Reaction Status Date / Time No Known Allergies Allergy Verified 04/13/25 09:55 Current Medications Generic Name Dose Route Start Last Admin Trade Name Freq PRN Reason Stop Dose Admin Sodium Chloride 1,000 mls @ 30 mls/hr 04/14/25 11:45 04/14/25 12:10 Sodium Chloride 0.9% IV 04/15/25 11:44 30 mls/hr .Q24H MICHELLE Administration PFSH Anesthesia Medical History Pancreatitis C. difficile colitis Hypertension Surgical History History of esophagogastroduodenoscopy (EGD) Hx of colonoscopy History of cranial surgery Social History Smoking and tobacco/nicotine status: never used tobacco/nicotine Alcohol intake: current Alcohol intake frequency: 3 or more drinks per day Substance/Drug Use: never Lives independently: Yes Household members: spouse and children
[2025-04-14] MEDS: ceFAZolin 2,000 mg SDV 2000 MG IVP (13:52)
[2025-04-14] MEDS: lidocaine-epi 2% PF 1:200,000 20 mL SDV 40 ML XX (14:40)
--- NOTE | 2025-04-14 14:46 | W.PM.BPON ---
Date of Procedure: 04/14/2025 Surgeon: Valentin Bull DO Bioinformaticist(s): None Procedure(s) performed: Right knee diagnostic and surgical arthroscopy with fat pad synovectomy with extensive synovectomy (synovectomy of medial lateral and patellofemoral compartments) Right knee diagnostic and surgical arthroscopy with loose body removal Right knee diagnostic and surgical diascopy with patellofemoral compartment chondroplasty Findings of the procedure(s): Patient underwent procedure as planned without issues or complications taken to recovery in stable condition Estimated blood loss: 5 mL Specimen(s) removed: Loose body removed through arthroscopic shaver Post-operative diagnosis: Right knee patellofemoral compartment chondromalacia, fat pad impingement syndrome with extensive synovitis, loose body
--- NOTE | 2025-04-14 14:48 | PM.OP ---
Operative Report Date of procedure: April 14, 2025 Surgeon: Valentin Bull DO Procedure: Preop Dx Right knee fat pad impingement syndrome Post-op diagnosis: Right knee patellofemoral compartment chondromalacia, fat pad impingement syndrome with extensive synovitis, loose body Procedure done: Right knee diagnostic and surgical arthroscopy with fat pad synovectomy with extensive synovectomy (synovectomy of medial lateral and patellofemoral compartments) Right knee diagnostic and surgical arthroscopy with loose body removal Right knee diagnostic and surgical arthroscopy with patellofemoral compartment chondroplasty Surgeon: Valentin Bull DO Estimated blood loss: 5mL Tourniquet: 22min IV fluids: 800mL Complications: None Findings: See operative report narrative Condition: stable Disposition: same day Brief History: Patient is a 44-year-old male with right?knee?pain.? Patient has failed conservative treatment who has been worked up for right??knee?pain in the outpatient setting. MRI findings consistent with right knee fat pad impingement syndrome. Talked in the office about treatment options patient would like to proceed with a right?knee?diagnostic and surgical arthroscopy with fat pad synovectomy.? Patient understand the ins and outs of the procedure the risk benefits complication alternatives to treatment options.? Understanding risk of surgery patient elects to proceed with surgical intervention.?? Understanding this and patient agree to proceed with surgical intervention all questions answered. Procedure: Patient seen and evaluated in the preoperative holding area.? Consent was reviewed and signed with patient.? Correct extremity was then marked.? Patient seen evaluated Anesthesia Department once cleared for surgery patient was taken back to the operative suite.? Patient was transported onto the OR table in supine position.? All bony prominences well-padded patient was appropriate secured to the bed.? Once appropriately anesthetized a nonsterile tourniquet was applied to the right thigh.? The right lower extremity was then prepped and draped in?standard?orthopedic fashion.? Final timeout performed.? Patient received appropriate preoperative antibiotics. Patient received local anesthetic of lidocaine with epinephrine into the joint as well as around the portal sites.? Esmarch tourniquet was used to exsanguinate right lower extremity and tourniquet was inflated to 150 mmHg. A?standard?2 portal vertical incision diagnostic and surgical arthroscopy of the right?knee?was performed in?standard?fashion.? Small stab incision made in the inferolateral portal introduced trocar and arthroscope into the suprapatellar pouch.? Suprapatellar pouch was subsequently visualized and found to have significant synovitis but no loose bodies.? Patient had noticeable significant inflamed infrapatellar fat pad and thickening hypertrophic within the patellofemoral compartment.? ?The medial gutter was free of loose bodies I then introduced the arthroscope into the medial compartment.? Within the medial compartment I then established my inferior medial working portal utilizing spinal needle outside in technique.? Once established I then visualized our articular cartilage of the medial compartment with a valgus stress.? Patient was found to have grade 1 chondromalacia throughout the medial compartment.? Next I inspected the meniscus.? With an arthroscopic probe was utilized to visual? all aspects of the meniscus.? Meniscal root was found to be intact.? No tear was noted in the meniscus. There was a floating loose body when inspected the posterior horn of the medial meniscus and subsequently visualized this in the retrocruciate space this was subsequently removed with arthroscopic shaver. Next, I then performed a synovectomy of the medial compartment.? No chondroplasty performed in the medial compartment. Grade I chondromalacia.? This completed medial compartment work. Next a introduced the arthroscope to the intercondylar notch.? PCL and ACL were intact. patient had significant thickening of the infrapatellar fat pad spanning into the medial and lateral compartments this was significantly consistent with fat pad impingement syndrome and extended in all 3 compartments of the knee. I then performed an extensive synovectomy with the arthroscopic shaver of the patellofemoral medial and lateral compartments as well as the intercondylar notch. I then advanced the scope into the additional retrocruciate space and no loose bodies found in this area. Next I introduced the arthroscope into the lateral compartment, the lateral compartment was found to have grade 1 chondromalacia.? Lateral meniscus was found to be intact.? The root was intact.? Given the grade 1 chondromalacia there is no unstable cartilage pieces to perform chondroplasty.? This completed my work of the lateral compartment and then performed a synovectomy of the lateral compartment.? Next of the arthroscope was placed into the lateral gutter and this was free of loose bodies.? Finally I reintroduced the arthroscope into the patellofemoral compartment.? The patellofemoral was found to have grade 3-4 chondromalacia of the patellofemoral compartment.? This was likely the donor site from the floating loose body as patient did have fairly advanced patellofemoral joint arthritis and chondromalacia. Patient had grade 3 4 then subsequently utilized arthroscopic shaver and thermal wand to perform a patellofemoral compartment chondroplasty to remove all loose pieces of articular cartilage and took this to stable articular tissue. At this point I utilized arthroscopic shaver as well as thermal wand to perform extensive synovectomy of the patellofemoral compartment. This completed my work of the patellofemoral space.? I then switch my portal sites to the medial working portal.? Completed the rest of my synovectomy and the rest of my examination arthroscopy was normal. Tourniquet deflated hemostasis satisfactory. All fluid was suctioned from the joint.? ?All instruments were withdrawn.? Portal sites were closed with interrupted nylon suture.? portal sites were then covered with with Xeroform 4 x 4's ABD Curlex and Andrea wrap.? Patient was then subsequently awakened from anesthesia and taken to PACU in stable condition. Disposition: Patient taken to PACU in stable condition recovering well.? Will receive appropriate discharge structure as well as pain medication postoperatively as well as? DVT prophylaxis.we will have patient follow-up with us in the office in 2 weeks.? We will weightbearing as tolerated to the right lower extremity.? Patient understands and agrees with current plan.? All questions answered.
--- NOTE | 2025-04-14 15:28 | PC.NURSE ---
1515 - GERARD Linder aware that pt has small abrasion to upper and lower lip noted in pacu - no active bleed noted to either incision - informed per this nurse to both patient and spouse
--- NOTE | 2025-04-14 16:45 | ANE.PACU2 ---
Inpatient post-anesthesia follow up: Airway intact: Yes Vital signs: Temperature 96.9 F Pulse Rate 60 Respiratory Rate 18 Blood Pressure 126/88 Pulse Oximetry 97 Oxygen Delivery Me thod Room Air Oxygen Flow Rate Fraction of Inspir ed Oxygen Hydration adequate: Yes Nausea and vomiting: No Pain level: 1 Mental status: Baseline
== END 2025-04-14 16:45 | disposition home or self-care (01) ==
PROVIDERS: PCP Nurse Practitioner Family; Visit Provider Student in an Organized Health Care Education/Training Program
PROC: (CPT 29870; principal; 2025-04-14 14:25)
DX: M25.861 Other specified joint disorders, right knee (principal); M94.261 Chondromalacia, right knee; M23.41 Loose body in knee, right knee; I10 Essential (primary) hypertension; K21.9 Gastro-esophageal reflux disease without esophagitis; Z79.891 Long term (current) use of opiate analgesic
CPT/HCPCS: 29876; J0131; J0330; J0690; J1100; J1885; J2405; J2704; J3010; J7030; J9999

== ENCOUNTER 2025-04-29 14:57 | Emergency (ER) | payer MEDICAID, SELFPAY ==
--- NOTE | 2025-04-29 14:59 | USR_ITS ---
PROCEDURE INFORMATION: Exam: US Duplex Right Lower Extremity Veins, Limited Exam date and time: 04/29/2025 3:09 PM Age: 44 years old Clinical indication: Pain; Leg, lower; Prior surgery; Surgery date: <1 month; Surgery type: Right knee arthroplasty-2 weeks; Additional info: Leg swelling TECHNIQUE: Imaging protocol: Real-time duplex ultrasound of the right extremity with 2-D menjivar scale, color Doppler flow and spectral waveform analysis including responses to compression and other maneuvers (when performed) with image documentation. Limited exam was focused on the right lower extremity veins. COMPARISON: MR knee RT wo con* [id number] 01/30/2024 1:57 PM FINDINGS: Right deep veins: Unremarkable. The common femoral, femoral, proximal profunda femoral and popliteal veins are patent without thrombus. Normal Doppler waveforms. Normal compressibility and/or augmentation response. Superficial veins: Greater saphenous vein at the saphenofemoral junction is patent without thrombus. Soft tissues: Unremarkable. US/[place] [id number] IMPRESSION: No evidence of deep vein thrombosis.
[2025-04-29 15:10] VITALS: BP 128/86; PULSE 88; RESP 17; TEMP 36.7; O2SAT 96; BMI 30.8
--- NOTE | 2025-04-29 16:32 | W.ED.EXTPRO ---
HPI - Extremity Problem General: Chief complaint: Extremity Problem,Nontraumatic Stated complaint: Rt calf swollen Time Seen by Provider: 04/29/25 16:29 History of Present Illness: Patient is 44-year-old gentleman status post arthroscopy right knee on 04/14, presents to the ED from Dr. Bull's office at Dr. Bull's request for lower extremity ultrasound. Context: Patient states he has issues with pain and swelling to right lower extremity, worsening over the last 1 week. This swelling feels like it is going down to the medial portion of the ankle. No fevers. Slight redness around the mid lower leg medially. No chills. No sick contact. No shortness of breath. Associated symptoms: Deny chest pain or fever(s) Related Data Home Medications ?Medication ?Instructions ?Recorded ?Confirmed losartan 50 mg tablet 50 mg PO QPM 06/19/22 04/29/25 Previous Rx's ?Medication ?Instructions ?Recorded Economy Knee Brace, left and right #1 ea 07/20/23 cephalexin 500 mg capsule 500 mg PO TID 10 days #30 caps 04/29/25 hydrocodone 5 mg-acetaminophen 325 1 tab PO Q6H PRN pain 5 days #20 04/29/25 mg tablet tabs Allergies Allergy/AdvReac Type Severity Reaction Status Date / Time No Known Allergies Allergy Verified 04/29/25 14:18 Review of Systems General: Reports: 10 or more systems reviewed and unremarkable except in HPI and below Const: Denies: fever(s) or chills Card: Denies: chest pain or dyspnea on exertion Resp: Denies: dyspnea, productive cough or wheezing GI: Denies: abdominal pain, nausea or vomiting Musc: Reports: extremity pain, extremity swelling, joint pain, joint swelling, joint redness, joint warmth, joint stiffness, limited range of motion and other (ankle swelling) Skin/Breast: Denies: changes in skin color or dry skin Neuro: Denies: numbness in extremities or weakness in extremities Psych: Denies: anxiety Mo/Lymph: Denies: easy bruising or easy bleeding PFS ED PFSH: Medical History (Updated 04/29/25 @ 16:55 by KOFI Trent) Pancreatitis C. difficile colitis Hypertension Surgical History (Updated 04/14/25 @ 14:30 by KOFI Giraldo) History of esophagogastroduodenoscopy (EGD) Hx of colonoscopy History of cranial surgery Social History Smoking and tobacco/nicotine status: never used tobacco/nicotine Alcohol intake: current Alcohol intake frequency: 3 or more drinks per day Substance/Drug Use: never Lives independently: Yes Household members: spouse and children Physical Exam Const: COMMON NORMALS: no acute distress and alert HENMT: COMMON NORMALS: normocephalic and atraumatic HEAD & SCALP: normocephalic and atraumatic Neck/C-Spine: COMMON NORMALS: full ROM, no lymphadenopathy, supple and no meningeal signs Lymph: LYMPHATIC: no lymphadenopathy noted Chest: COMMONS NORMALS: normal inspection of the chest and normal palpation of entire chest wall Resp: COMMON NORMALS: normal respiratory effort, No retractions and clear to auscultation bilaterally AUSCULTATION: clear to auscultation bilaterally Cardio: COMMON NORMALS: Peripheral pulses 2+ throughout PERIPHERAL PULSES: Peripheral pulses 2+ throughout GI: COMMON NORMALS: Normal to inspection, nondistended, normoactive bowel sounds present, Soft to palpation, non-tender and No hepatosplenomegaly present PALPATION: Yes Soft to palpation and Yes No hepatosplenomegaly present Extremity: RIGHT LOWER EXTREMITY: Yes lower leg Right lower leg: Yes inspection (Mild redness medial mid lower leg), Yes palpation (pain distal medial) and Yes neurovascular exam (intact) Neuro: SENSORIUM/ORIENTATION: Yes alert MENINGEAL SIGNS: Yes no meningeal signs Skin: GENERAL SKIN EXAM: dry skin Course Vital Signs: Vital signs: Vital Signs Temperature 98.1 F 04/29/25 15:10 Pulse Rate 75 04/29/25 17:27 Respiratory Rate 17 04/29/25 15:10 Blood Pressure 117/96 04/29/25 17:27 Pulse Oximetry 96 04/29/25 17:27 Oxygen Delivery Me thod Room Air 04/29/25 15:10 MDM - Extremity (Nontraumatic) Medical Decision Making Patient is 44-year-old male presents to the ED with right lower extremity edema. DVT is negative. He does have some mild mid lower leg redness. Will treat with cephalexin, however you could make the argument to compress, elevate, and give low-salt diet information. Discussed all these things with the patient. I have asked him to call his doctor prior at tomorrow to follow-up closely regarding continuing antibiotic coverage with recent surgery. Medical Records I reviewed the patient's medical records. Lab Data I reviewed the patient's lab results. Radiology Impressions Venous Duplex 04/29/25 14:59 IMPRESSION: No evidence of deep vein thrombosis. All radiology interpretation(s) finalized by discharge ED provider radiology interpretation(s): No DVT Discharge Plan Discharge Patient Disposition: Home Clinical Impression: Cellulitis of right leg without foot Condition: Stable Prescriptions: New cephalexin 500 mg capsule 500 mg PO TID 10 Days Qty: 30 0RF No Action (DME) Economy Knee Brace, left and right See Rx Instructions .Route .MEDSUPPLY Qty: 1 0RF Rx Instructions: As directed hydrocodone-acetaminophen 5-325 mg tablet 1 tab PO Q6H PRN (Reason: pain) 5 Days Qty: 20 0RF losartan 50 mg tablet 50 mg PO QPM Discharge Orders: Discharge ED (Routine); Ordered 04/29/25 Ordered By: Enedelia Garcia Referrals: Rachael Vasques FNP [Primary Care Provider, Nurse Practitioner] Discharge Diet: Low Salt Patient Instructions: DASH Eating Plan (ED), Edema (ED), Patient Portal & Nam Instructions Activity Restrictions/Additional Instructions: - Compress your lower extremities. When you are up in the morning, place your compression stockings, and do not remove until before bed. The best recommended ones go above your knee, although this is hard to tolerate, if you can tolerate just below the knee this will still help - Low-salt diet! This is how you keep things from building up through the day. I will give you information on low-salt diet. - Return to ED with worsening shortness of breath. Your scan today was negative. - Continue your movements and ambulation as you are supposed to with your surgery. - Take your antibiotics 3 times a day. Set your alarm. In order to reduce chances of infectious diarrhea, utilize a probiotic daily or take active culture yogurt. Thank you for choosing [facility] for your healthcare needs today. You have been screened and evaluated and felt safe for discharge. Health conditions do change or evolve sometimes and as such it is important that you follow up with your Primary Doctor to be re checked, 3-5 days is a general good time frame for follow up. You are always welcome to return to the ED for re assessment if your symptoms are worsening or you have new concerns Print Language: Georgian Coding Level of Care Code ED Pharmacy Manager for Brisa Chaney
[2025-04-29 17:27] VITALS: BP 117/96; PULSE 75; O2SAT 96
--- OUTSIDE RECORDS SUMMARY | 2025-04-29 19:51 | XMS_ITS | Encounter Summary ---
Author Organization [facility] Address [address] [place] [address] Care Team Providers Care Tractor Trailer Truck Driver Name Role Phone Unavailable Primary Care Provider Unavailabl e Encounter Details Date Type Department Care Team (Late st Contact Info) Description 04/19/2007 Outpatient Historical HIS IN BED Gianfranco Burnham MD [address] [place] [id number] Unspecified Meningitis Social History Tobacco Use Types Packs/Day Years Used Date Smoking Tobacco: Never Assessed Sex and Gender Information Value Date Recorded Sex Assigned at Not on file Legal Sex Male 6:51 AM TROMBONE SLIDE ASSEMBL[employer] Gender Identity Not on file Sexual Orientation Not on file documented as of this encounter Plan of Treatment Not on file documented as of this encounter Procedures Procedure Name Priority Date/Time Associated Diagnosis Comments MISCELLANEOUS LAB TEST Routine 7 7:57 AM [employer]OMBONE SLIDE ASSEMBLER CBC WITH DIFFERENTIAL Routine 04/12/2007 7:02 AM [employer]OMBONE SLIDE ASSEMBLER BASIC METABOLIC PANEL Routine 04/12/2007 7:02 AM [employer]OMBONE SLIDE ASSEMBLER CBC WITH DIFFERENTIAL Routine 04/11/2007 6:03 AM [employer]OMBONE SLIDE ASSEMBLER COMPREHENSIVE METABOLIC PANEL Routine 04/11/2007 6:03 AM [employer]OMBONE SLIDE ASSEMBLER CBC WITH DIFFERENTIAL Routine 04/10/2007 3:20 AM TROMBONE SLIDE ASSEMBLER VANCOMYCIN LEVEL PEAK Routine 04/10/2007 3:20 AM [employer]OMBONE SLIDE ASSEMBLER COMPREHENSIVE METABOLIC PANEL Routine 04/10/2007 3:20 AM TROMBONE SLIDE ASSEMBLER WEST NILE VIRUS ANTIBODY PANEL, BLOOD Routine 04/09/2007 11:28 PM [employer]OMBONE SLIDE ASSEMBLER ENTEROVIRUS BY PCR, NON-BLOOD Routine 04/09/2007 11:28 PM TROMBONE SLIDE ASSEMBLER VANCOMYCIN LEVEL TROUGH Routine 04/09/2007 11:28 PM TROMBONE SLIDE ASSEMBLER HSV BY PCR Routine 04/08/2007 8:47 PM TROMBONE SLIDE ASSEMBLER TOTAL PROTEIN, CSF Routine 04/08/2007 3: 33 PM [employer]OMBONE SLIDE ASSEMBLER SPINAL FLUID CELL COUNT W/REFLEX DIFFERENTIAL Routine 04/08/2007 3:33 PM TROMBONE SLIDE ASSEMBLER GLUCOSE, CSF Routine 04/08/2007 3:33 PM TROMBONE SLIDE ASSEMBLER CBC WITH DIFFERENTIAL Routine 04/08/2007 2:47 PM TROMBONE SLIDE ASSEMBLER SEDIMENTATION RATE Routine 04/08/2007 2: 47 PM [employer]OMBONE SLIDE ASSEMBLER BASIC METABOLIC PANEL Routine 04/08/2007 2:47 PM TROMBONE SLIDE ASSEMBLER documented in this encounter Results * MISCELLANEOUS LAB TEST (04/17/2007 7:57 AM TROMBONE SLIDE ASSEMBLER) Pathologist [facility] MISCELLANEOUS LAB TEST INTERFACE SYSTEM Comment: [id number] rna qualitative pcr sent to [facility] see sep report 04/17/2007 7:57 AM TROMBONE SLIDE ASSEMBLER us Gianfranco Burnham MD CHEMISTRY ORDERABLES Edited INTERFACE SYSTEM Refer to clinic/hospital department * (ABNORMAL) BASIC METABOLIC PANEL (04/12/2007 7:02 AM TROMBONE SLIDE ASSEMBLER) GLUCOSE 98 70 - 110 mg/dL INTERFACE SYSTEM BUN 7(L) 9 - 20 mg/dL INTERFACE SYSTEM CREATININE 0.9 0.7 - 1.5 mg/dL INTERFACE SYSTEM SODIUM 143 136 - 145 mEq/L INTERFACE SYSTEM POTASSIUM 4.1 3.5 - 5.0 mEq/L INTERFACE SYSTEM CHLORIDE 103 95 - 110 mEq/L INTERFACE SYSTEM CO2 29 22 - 32 mmol/l INTERFACE SYSTEM CALCIUM 9.6 8.4 - 10.5 mg/dL INTERFACE SYSTEM ANION GAP 15 9 - 20 mEq/L INTERFACE SYSTEM OSMOLALITY, CALCULATED 292 275 - 295 mOsm/Kg INTERFACE SYSTEM 04/12/2007 7:02 AM TROMBONE SLIDE ASSEMBLER Gianfranco Burnham MD CHEMISTRY ORDERABLES Edited INTERFACE SYSTEM Refer to clinic/hospital department * (ABNORMAL) CBC WITH DIFFERENTIAL (04/12/2007 7:02 AM TROMBONE SLIDE ASSEMBLER) WBC 7.4 4.5 - 11.0 K/ul INTERFACE SYSTEM RBC 4.60 4.60 - 6.20 Mil/ul INTERFACE SYSTEM HEMOGLOBIN 14.1 14.0 - 18.0 g/dL INTERFACE SYSTEM HEMATOCRIT 40.9(L) 41.0 - 53.0 % INTERFACE SYSTEM MCV 88.9 84.0 - 103.0 Fl INTERFACE SYSTEM MCH 30.7 27.0 - 34.0 pg INTERFACE SYSTEM MCHC 34.5 30.0 - 35.0 g/dL INTERFACE SYSTEM RDW 12.2 11.0 - 14.5 % INTERFACE SYSTEM PLATELETS 312 140 - 440 K/ul INTERFACE SYSTEM MPV 9.3 8.9 - 12.8 Fl INTERFACE SYSTEM NEUTROPHILS 71.8 42.2 - 75.2 % INTERFACE SYSTEM LYMPHOCYTES 17.8(L) 24.0 - 44.0 % INTERFACE SYSTEM MONOCYTES 8.3 2.0 - 10.0 % INTERFACE SYSTEM EOSINOPHILS 1.7 0.0 - 7.0 % INTERFACE SYSTEM BASOPHILS 0.4 0.0 - 1.0 % INTERFACE SYSTEM NEUTROPHIL ABSOLUTE 5.3 2.0 - 8.0 K/ul INTERFACE SYSTEM LYMPHOCYTE ABSOLUTE 1.3 1.2 - 4.0 K/ul INTERFACE SYSTEM MONOCYTE ABSOLUTE 0.6 0.1 - 0.6 K/ul INTERFACE SYSTEM EOSINOPHIL ABSOLUTE 0.1 0.0 - 0.7 K/ul INTERFACE SYSTEM BASOPHILS ABSOLUTE 0.0 0.0 - 0.2 K/ul INTERFACE SYSTEM 04/12/2007 7:02 AM TROMBONE SLIDE ASSEMBLER Gianfranco Burnham MD HEMATOLOGY ORDERABLES Edite d Performing Organization Address [facility] Phone Number INTERFACE SYSTEM Refer to clinic/hospital department * (ABNORMAL) COMPREHENSIVE METABOLIC PANEL (04/11/2007 6:03 AM TROMBONE SLIDE ASSEMBLER) GLUCOSE 97 70 - 110 mg/dL INTERFACE SYSTEM BUN 7(L) 9 - 20 mg/dL INTERFACE SYSTEM CREATININE 0.9 0.7 - 1.5 mg/dL INTERFACE SYSTEM SODIUM 139 136 - 145 mEq/L INTERFACE SYSTEM POTASSIUM 4.0 3.5 - 5.0 mEq/L INTERFACE SYSTEM CHLORIDE 103 95 - 110 mEq/L INTERFACE SYSTEM CO2 28 22 - 32 mmol/l INTERFACE SYSTEM CALCIUM 9.6 8.4 - 10.5 mg/dL INTERFACE SYSTEM TOTAL PROTEIN 7.1 6.3 - 8.2 g/dL INTERFACE SYSTEM ALBUMIN 4.1 3.5 - 5.0 g/dL INTERFACE SYSTEM ALKALINE PHOSPHATASE 88 25 - 100 U/L INTERFACE SYSTEM AST 23 8 - 33 U/L INTERFACE SYSTEM ALT 41(H) 4 - 36 IU/L INTERFACE SYSTEM BILIRUBIN TOTAL 0.4 0.3 - 1.2 mg/dL INTERFACE SYSTEM GLOBULIN (CALC) 3.0 2.4 - 3.9 g/dL INTERFACE SYSTEM ALBUMIN/GLOBULIN RATIO 1.4 1.0 - 2.3 INTERFACE SYSTEM ANION GAP 12 9 - 20 mEq/L INTERFACE SYSTEM OSMOLALITY, CALCULATED 284 275 - 295 mOsm/Kg INTERFACE SYSTEM 04/11/2007 6:03 AM TROMBONE SLIDE ASSEMBLER Gianfranco Burnham MD CHEMISTRY ORDERABLES Edited Performing Organization Address [facility] Phone Number INTERFACE SYSTEM Refer to clinic/hospital department * (ABNORMAL) CBC WITH DIFFERENTIAL (04/11/2007 6:03 AM TROMBONE SLIDE ASSEMBLER) WBC 6.9 4.5 - 11.0 K/ul INTERFACE SYSTEM RBC 4.44(L) 4.60 - 6.20 Mil/ul INTERFACE SYSTEM HEMOGLOBIN 13.5(L) 14.0 - 18.0 g/dL INTERFACE SYSTEM HEMATOCRIT 39.2(L) 41.0 - 53.0 % INTERFACE SYSTEM MCV 88.3 84.0 - 103.0 Fl INTERFACE SYSTEM MCH 30.4 27.0 - 34.0 pg INTERFACE SYSTEM MCHC 34.4 30.0 - 35.0 g/dL INTERFACE SYSTEM RDW 12.2 11.0 - 14.5 % INTERFACE SYSTEM PLATELETS 310 140 - 440 K/ul INTERFACE SYSTEM MPV 9.1 8.9 - 12.8 Fl INTERFACE SYSTEM NEUTROPHILS 66.3 42.2 - 75.2 % INTERFACE SYSTEM LYMPHOCYTES 22.0(L) 24.0 - 44.0 % INTERFACE SYSTEM MONOCYTES 9.1 2.0 - 10.0 % INTERFACE SYSTEM EOSINOPHILS 1.9 0.0 - 7.0 % INTERFACE SYSTEM BASOPHILS 0.7 0.0 - 1.0 % INTERFACE SYSTEM NEUTROPHIL ABSOLUTE 4.6 2.0 - 8.0 K/ul INTERFACE SYSTEM LYMPHOCYTE ABSOLUTE 1.5 1.2 - 4.0 K/ul INTERFACE SYSTEM MONOCYTE ABSOLUTE 0.6 0.1 - 0.6 K/ul INTERFACE SYSTEM EOSINOPHIL ABSOLUTE 0.1 0.0 - 0.7 K/ul INTERFACE SYSTEM BASOPHILS ABSOLUTE 0.1 0.0 - 0.2 K/ul INTERFACE SYSTEM 04/11/2007 6:03 AM TROMBONE SLIDE ASSEMBLER us Gianfranco Burnham MD HEMATOLOGY ORDERABLES Edite d INTERFACE SYSTEM Refer to clinic/hospital department * (ABNORMAL) COMPREHENSIVE METABOLIC PANEL (04/10/2007 3:20 AM TROMBONE SLIDE ASSEMBLER) GLUCOSE 106 70 - 110 mg/dL INTERFACE SYSTEM BUN 8(L) 9 - 20 mg/dL INTERFACE SYSTEM CREATININE 0.8 0.7 - 1.5 mg/dL INTERFACE SYSTEM SODIUM 139 136 - 145 mEq/L INTERFACE SYSTEM POTASSIUM 4.0 3.5 - 5.0 mEq/L INTERFACE SYSTEM CHLORIDE 105 95 - 110 mEq/L INTERFACE SYSTEM CO2 25 22 - 32 mmol/l INTERFACE SYSTEM CALCIUM 9.5 8.4 - 10.5 mg/dL INTERFACE SYSTEM TOTAL PROTEIN 7.1 6.3 - 8.2 g/dL INTERFACE SYSTEM ALBUMIN 3.9 3.5 - 5.0 g/dL INTERFACE SYSTEM ALKALINE PHOSPHATASE 92 25 - 100 U/L INTERFACE SYSTEM AST 26 8 - 33 U/L INTERFACE SYSTEM ALT 43(H) 4 - 36 IU/L INTERFACE SYSTEM BILIRUBIN TOTAL 0.4 0.3 - 1.2 mg/dL INTERFACE SYSTEM GLOBULIN (CALC) 3.2 2.4 - 3.9 g/dL INTERFACE SYSTEM ALBUMIN/GLOBULIN RATIO 1.2 1.0 - 2.3 INTERFACE SYSTEM ANION GAP 13 9 - 20 mEq/L INTERFACE SYSTEM OSMOLALITY, CALCULATED 285 275 - 295 mOsm/Kg INTERFACE SYSTEM 04/10/2007 3:20 AM TROMBONE SLIDE ASSEMBLER us Giafnranco Burnham MD CHEMISTRY ORDERABLES Edited INTERFACE SYSTEM Refer to clinic/hospital department * (ABNORMAL) CBC WITH DIFFERENTIAL (04/10/2007 3:20 AM TROMBONE SLIDE ASSEMBLER) WBC 6.2 4.5 - 11.0 K/ul INTERFACE SYSTEM RBC 4.53(L) 4.60 - 6.20 Mil/ul INTERFACE SYSTEM HEMOGLOBIN 13.9(L) 14.0 - 18.0 g/dL INTERFACE SYSTEM HEMATOCRIT 39.5(L) 41.0 - 53.0 % INTERFACE SYSTEM MCV 87.2 84.0 - 103.0 Fl INTERFACE SYSTEM MCH 30.7 27.0 - 34.0 pg INTERFACE SYSTEM MCHC 35.2(H) 30.0 - 35.0 g/dL INTERFACE SYSTEM RDW 12.1 11.0 - 14.5 % INTERFACE SYSTEM PLATELETS 292 140 - 440 K/ul INTERFACE SYSTEM MPV 9.3 8.9 - 12.8 Fl INTERFACE SYSTEM NEUTROPHILS 63.2 42.2 - 75.2 % INTERFACE SYSTEM LYMPHOCYTES 23.9(L) 24.0 - 44.0 % INTERFACE SYSTEM MONOCYTES 10.8(H) 2.0 - 10.0 % INTERFACE SYSTEM EOSINOPHILS 1.6 0.0 - 7.0 % INTERFACE SYSTEM BASOPHILS 0.5 0.0 - 1.0 % INTERFACE SYSTEM NEUTROPHIL ABSOLUTE 3.9 2.0 - 8.0 K/ul INTERFACE SYSTEM LYMPHOCYTE ABSOLUTE 1.5 1.2 - 4.0 K/ul INTERFACE SYSTEM MONOCYTE ABSOLUTE 0.7(H) 0.1 - 0.6 K/ul INTERFACE SYSTEM EOSINOPHIL ABSOLUTE 0.1 0.0 - 0.7 K/ul INTERFACE SYSTEM BASOPHILS ABSOLUTE 0.0 0.0 - 0.2 K/ul INTERFACE SYSTEM 04/10/2007 3:20 AM TROMBONE SLIDE ASSEMBLER Result Angelika Burnham MD HEMATOLOGY ORDERABLES Edite d Performing Organization Address [facility] Phone Number INTERFACE SYSTEM Refer to clinic/hospital department * VANCOMYCIN LEVEL PEAK (04/10/2007 3:20 AM TROMBONE SLIDE ASSEMBLER) VANCOMYCIN, PEAK 36.0 25.0 - 40.0 mcg/mL INTERFACE SYSTEM 04/10/2007 3:20 AM TROMBONE SLIDE ASSEMBLER Result Angelika Burnham MD CHEMISTRY ORDERABLES Edited Performing Organization Address [facility] Phone Number INTERFACE SYSTEM Refer to clinic/hospital department * WEST NILE VIRUS ANTIBODY PANEL, BLOOD (04/09/2007 11:28 PM TROMBONE SLIDE ASSEMBLER) WEST NILE VIRUS AB IGG/IGM See Sep Report INTERFACE SYSTEM 04/09/2007 11:2 8 PM TROMBONE SLIDE ASSEMBLER Result Angelika Burnham MD CHEMISTRY ORDERABLES Edited Performing Organization Address [facility] Phone Number INTERFACE SYSTEM Refer to clinic/hospital department * ENTEROVIRUS BY PCR (04/09/2007 11:28 PM TROMBONE SLIDE ASSEMBLER) ENTEROVIRUS BY PCR See Sep Report INTERFACE SYSTEM 04/09/2007 11:2 8 PM TROMBONE SLIDE ASSEMBLER Result Angelika Burnham MD BODY FLUIDS AND STOOLS COM Edited Performing Organization Address [facility] Phone Number INTERFACE SYSTEM Refer to clinic/hospital department * VANCOMYCIN LEVEL TROUGH (04/09/2007 11:28 PM TROMBONE SLIDE ASSEMBLER) VANCOMYCIN, TROUGH 6.0 5.0 - 15.0 mcg/mL INTERFACE SYSTEM 04/09/2007 11:2 8 PM TROMBONE SLIDE ASSEMBLER Result Angelika Burnham MD CHEMISTRY ORDERABLES Edited Performing Organization Address [facility] Phone Number INTERFACE SYSTEM Refer to clinic/hospital department * HSV BY PCR (04/08/2007 8:47 PM TROMBONE SLIDE ASSEMBLER) HSV BY PCR See Sep Report INTERFACE SYSTEM 04/08/2007 8:47 PM TROMBONE SLIDE ASSEMBLER Gianfranco Burnham MD BODY FLUIDS AND STOOLS Edit ed Performing Organization Address [facility] de Phone Number INTERFACE SYSTEM Refer to clinic/hospital department * (ABNORMAL) SPINAL FLUID CELL COUNT (04/08/2007 3:33 PM TROMBONE SLIDE ASSEMBLER) COLOR, CSF Colorless Colorless INTERFACE SYSTEM APPEARANCE, CSF Clear Clear INTE RFACE SYSTEM VOLUME, CSF TUBE [address] mL INTERFACE SYSTEM WBC, CSF 133(H) 0 - 5 /mm3 INTERFACE SYSTEM RBC, CSF 2(H) 0 - 0 /mm3 INTERFACE SYSTEM LYMPHOCYTES, CSF 92 % INTERFACE SYSTEM MONOCYTES/ HISTIOCYTES, CSF 7 % INTERFACE SYSTEM ADD'NL COMMENT, CSF INTERFACE SYSTEM Comment: Numerous lymphocytes are present. Rule out viral infection. Interpreted by: Dede Lux 04/08/2007 3:33 PM TROMBONE SLIDE ASSEMBLER Yannick French MD BODY FLUIDS AND STOOLS Ed ited Performing Organization Address [facility] Phone Number INTERFACE SYSTEM Refer to clinic/hospital department * (ABNORMAL) TOTAL PROTEIN, CSF (04/08/2007 3:33 PM TROMBONE SLIDE ASSEMBLER) PROTEIN, CSF 102(H) 15 - 45 mg/dL INTERFACE SYSTEM 04/08/2007 3:33 PM TROMBONE SLIDE ASSEMBLER Yannick French MD BODY FLUIDS AND STOOLS Ed ited Performing Organization Address [facility] de Phone Number INTERFACE SYSTEM Refer to clinic/hospital department * GLUCOSE, CSF (04/08/2007 3:33 PM TROMBONE SLIDE ASSEMBLER) GLUCOSE, CSF 51 40 - 70 mg/dL INTERFACE SYSTEM 04/08/2007 3:33 PM TROMBONE SLIDE ASSEMBLER Result [facility] Yannick French MD BODY FLUIDS AND STOOLS Ed ited Performing Organization Address [facility] Phone Number INTERFACE SYSTEM Refer to clinic/hospital department * (ABNORMAL) SEDIMENTATION RATE (04/08/2007 2:47 PM TROMBONE SLIDE ASSEMBLER) ESR (SEDIMENTATION RATE) 44(H) 0 - 20 mm/hr INTERFACE SYSTEM 04/08/2007 2:47 PM TROMBONE SLIDE ASSEMBLER Yannick French MD HEMATOLOGY ORDERABLES Last ritika Performing Organization Address [facility] Phone Number INTERFACE SYSTEM Refer to clinic/hospital department * BASIC METABOLIC PANEL (04/08/2007 2:47 PM TROMBONE SLIDE ASSEMBLER) SODIUM 138 136 - 145 mEq/L INTERFACE SYSTEM POTASSIUM 4.6 3.5 - 5.0 mEq/L INTERFACE SYSTEM CHLORIDE 98 95 - 110 mEq/L INTERFACE SYSTEM CO2 31 22 - 32 mmol/l INTERFACE SYSTEM ANION GAP 14 9 - 20 mEq/L INTERFACE SYSTEM GLUCOSE 96 70 - 110 mg/dL INTERFACE SYSTEM BUN 12 9 - 20 mg/dL INTERFACE SYSTEM CREATININE 0.9 0.7 - 1.5 mg/dL INTERFACE SYSTEM CALCIUM 10.0 8.4 - 10.5 mg/dL INTERFACE SYSTEM OSMOLALITY, CALCULATED 285 275 - 295 mOsm/Kg INTERFACE SYSTEM 04/08/2007 2:47 PM TROMBONE SLIDE ASSEMBLER Yannick French MD CHEMISTRY ORDERABLES Edit ed Performing Organization Address [facility] Phone Number INTERFACE SYSTEM Refer to clinic/hospital department * (ABNORMAL) CBC WITH DIFFERENTIAL (04/08/2007 2:47 PM TROMBONE SLIDE ASSEMBLER) WBC 6.4 4.5 - 11.0 K/ul INTERFACE SYSTEM RBC 4.77 4.60 - 6.20 Mil/ul INTERFACE SYSTEM HEMOGLOBIN 14.8 14.0 - 18.0 g/dL INTERFACE SYSTEM HEMATOCRIT 41.9 41.0 - 53.0 % INTERFACE SYSTEM MCV 87.8 84.0 - 103.0 Fl INTERFACE SYSTEM MCH 31.0 27.0 - 34.0 pg INTERFACE SYSTEM MCHC 35.3(H) 30.0 - 35.0 g/dL INTERFACE SYSTEM RDW 12.1 11.0 - 14.5 % INTERFACE SYSTEM PLATELETS 311 140 - 440 K/ul INTERFACE SYSTEM MPV 9.0 8.9 - 12.8 Fl INTERFACE SYSTEM NEUTROPHILS 66.0 42.2 - 75.2 % INTERFACE SYSTEM LYMPHOCYTES 21.2(L) 24.0 - 44.0 % INTERFACE SYSTEM MONOCYTES 9.9 2.0 - 10.0 % INTERFACE SYSTEM EOSINOPHILS 2.4 0.0 - 7.0 % INTERFACE SYSTEM BASOPHILS 0.5 0.0 - 1.0 % INTERFACE SYSTEM NEUTROPHIL ABSOLUTE 4.2 2.0 - 8.0 K/ul INTERFACE SYSTEM LYMPHOCYTE ABSOLUTE 1.4 1.2 - 4.0 K/ul INTERFACE SYSTEM MONOCYTE ABSOLUTE 0.6 0.1 - 0.6 K/ul INTERFACE SYSTEM EOSINOPHIL ABSOLUTE 0.2 0.0 - 0.7 K/ul INTERFACE SYSTEM BASOPHILS ABSOLUTE 0.0 0.0 - 0.2 K/ul INTERFACE SYSTEM 04/08/2007 2:47 PM TROMBONE SLIDE ASSEMBLER us Yannick French MD HEMATOLOGY ORDERABLES Last ritika INTERFACE SYSTEM Refer to clinic/hospital department documented in this encounter Visit Diagnoses Diagnosis Meningitis, unspecified(322.9) Meningitis, unspecified documented in this encounter
--- OUTSIDE RECORDS SUMMARY | 2025-04-29 19:51 | XMS_ITS | Clinical Summary ---
Author Organization [facility] Address [address] Attn: [place] [address] Care Team Providers Care Supply Chain Program Manager Name Role Phone Unavailable Primary Care Provider Unavailabl e Family History Medical History Relation Name Comments Healthy Child 1 Healthy Child 2 Healthy Child 3 Healthy Child 4 Healthy Child 5 Healthy Child 6 Relation Name Status Comments Child 1 Child 2 Child 3 Child 4 Child 5 Child 6 Social History Tobacco Use Types Packs/Day Years Used Date Smoking Tobacco: Never Alcohol Use Standard Drinks/Week Comments Yes 0 (1 standard drink = 0.6 oz pur e alcohol) occasionally Sex and Gender Information Value Date Recorded Sex Assigned at Not on file Legal Sex 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 Gender Identity Not on file Sexual Orientation Not on file Last Filed Vital Signs Vital Sign Reading Time Taken Comments Blood Pressure 110/70 04/09/2007 2:02 PM [employer]NAGEMENT [employer] Pulse 70 04/09/2007 2:02 PM MANAGEMENT [employer] MARKET[employer] Temperature 37.2 C (99 F) 04/09/2007 2:02 PM MANAGEMENT [employer] MARKETING Respiratory Rate 16 04/09/2007 2:02 PM MANAGEMENT [employer] MARKETING Oxygen Saturation 96% 04/09/2007 2:02 PM MANAGEMENT [employer] MARKETING Inhaled Oxygen Concentration - - Weight - - Height - - Body Mass Index - - Plan of Treatment Health Maintenance Due Date Last Done Comments DTAP/TDAP/TD VACCINES (1 - Tdap) 1999 HEPATITIS B VACCINES (1 of 3 - 19+ 3-dose series) 05/21 INFLUENZA VACCINE (#1) 2024 HPV VACCINES (No Doses Required) Completed
== END 2025-04-29 17:28 | disposition home or self-care (01) ==
PROVIDERS: Emergency Provider Physician Assistant; PCP Nurse Practitioner Family
DX: L03.115 Cellulitis of right lower limb (principal); I10 Essential (primary) hypertension
CPT/HCPCS: 93971; 99284